=== PATIENT | male | born 1960 | race Caucasian/White ===

== ENCOUNTER 2019-07-14 17:42 | Emergency (ER) | payer MEDICAID ==
[~2019-07-14] VITALS: Ht 175.3 cm; Wt 77.1 kg
[2019-07-14 18:09] VITALS: BP 99/64
[2019-07-14] MEDS ORDERED: CLINDAMYCIN 600MG IV 50 ML IV ONE (18:15)
[2019-07-14] MEDS ORDERED: SODIUM CHLORIDE 0.9% 1,000 ML IV ONE ×2 (18:15)
[2019-07-14] MEDS ORDERED: cefTRIAXone 1GM/50ML D5W 50 ML IV ONE (18:15)
[2019-07-14] MEDS ORDERED: cefTRIAXone W LIDOCAINE 1 GM IM IM ONE (18:30)
[2019-07-14] MEDS ORDERED: CLINDAMYCIN 600 MG/4 ML VL IM ONE (18:30)
[2019-07-14] MEDS ORDERED: cefTRIAXone SOD 1,000 MG VL IM ONE (18:45)
[2019-07-14 18:53] LABS: Eosinophils # (auto) 0 uL; Eosinophils % (auto) 0.3 % (0.0-7.0); Monocytes # (auto) 0.7 uL; Nucleated Red Blood Cells % 0.1 %
[2019-07-14 18:56] LABS: Basophils # (auto) 0 uL; Basophils % (auto) 0.7 % (0.0-2.0); Hematocrit 42.7 % (41.0-53.0); Hemoglobin 15.1 g/dL (13.5-17.5); Mean Corpuscular Hemoglobin 37.6 pg (28.0-32.0); Mean Corpuscular Hgb Conc. 35.3 g/dL (32.0-36.0); Mean Corpuscular Volume 106.5 fL (80.0-100.0); Monocytes % (auto) 12.4 % (0.0-12.0); Neutrophils # (auto) 3.9 uL; Neutrophils % (auto) 69.6 % (37.0-80.0); Platelet Count (auto) 296 10^3/uL (140-450); Red Blood Cells 4.01 10^6/uL (4.5-5.90); Red Cell Distribution Width 13.1 % (11.8-14.3); White Blood Cell 5.7 10^3/uL (4.4-10.8)
[2019-07-14 19:06] LABS: INR 0.98 (0.9-1.15); Partial Thromboplastin Time 28.8 sec (23.64-32.05)
[2019-07-14 19:11] LABS: Albumin 2.4 g/dL (3.4-5.0); BUN/Creatinine Ratio 7.4; Calcium 8.1 mg/dL (8.5-10.1)
[2019-07-14 19:12] LABS: Lactic Acid w/Reflex 3.8 mmol/L (0.4-2.0)
[2019-07-14 19:13] LABS: Bilirubin, Total 0.8 mg/dL (0.2-1.0); Total Protein 6.6 g/dL (6.4-8.2)
[2019-07-14 19:22] LABS: Potassium 2.9 mmol/L (3.5-5.1)
== END 2019-07-14 18:50 | disposition left against medical advice (07) ==
LOC: ER 17:42
DX: L03.115 Cellulitis of right lower limb (principal); L03.116 Cellulitis of left lower limb
CPT/HCPCS: 36415; 80053; 83605; 85025; 85610; 85730; 87040; 96372; 99283; J0696

== ENCOUNTER 2019-07-16 11:02 | Inpatient (IN) | payer MEDICAID | END 2019-07-21 17:50 | disposition home or self-care (01) | LOC: ER 11:02 → TELE 11:03 → TELE-EAST 18:17 | DX: A41.9 Sepsis, unspecified organism (principal); E87.2 Acidosis; E44.0 Moderate protein-calorie malnutrition; E87.1 Hypo-osmolality and hyponatremia; R65.20 Severe sepsis without septic shock; L03.115 Cellulitis of right lower limb; L03.116 Cellulitis of left lower limb; E87.6 Hypokalemia ==

== ENCOUNTER 2020-07-07 14:12 | Inpatient (IN) | payer MEDICAID ==
[2020-07-07] VITALS (16 sets, daily range): BP systolic 70–177; BP diastolic 33–144
[~2020-07-07] VITALS: Ht 172.7 cm; Wt 84.9 kg
[2020-07-07] MEDS ORDERED: SODIUM CHLORIDE 0.9% 1,000 ML IVB ONE (14:43)
[2020-07-07 14:44] LABS: Basophils # (auto) 0 10 ^3/uL (0-0.2); Basophils % (auto) 0.1 % (0.0-2.0); Eosinophils # (auto) 0 10 ^3/uL (0-0.8); Hemoglobin 13.1 g/dL (13.5-17.5); Monocytes # (auto) 1.3 10 ^3/uL (0-1.3)
[2020-07-07] MEDS ORDERED: PANTOPRAZOLE 40 MG/10 ML VIAL INJ IV ONE (14:45)
[2020-07-07] MEDS ORDERED: PANTOPRAZOLE 40mg/50ML NS AE 50 ML IV ONE (14:45)
[2020-07-07 14:46] LABS: Hematocrit 41.2 % (41.0-53.0); Lymphocytes # (auto) 0.6 10 ^3/uL (0.4-5.4); Lymphocytes % (auto) 6.3 % (10.0-50.0); Mean Corpuscular Hemoglobin 37.4 pg (28.0-32.0); Mean Corpuscular Hgb Conc. 31.9 g/dL (32.0-36.0); Mean Corpuscular Volume 117.5 fL (80.0-100.0); Monocytes % (auto) 13.8 % (0.0-12.0); Neutrophils # (auto) 7.5 10 ^3/uL (1.6-8.6); Neutrophils % (auto) 79.8 % (37.0-80.0); Nucleated Red Blood Cells % 0.2 %; Platelet Count (auto) 168 10^3/uL (140-450); Red Cell Distribution Width 15.9 % (11.8-14.3); White Blood Cell 9.4 10^3/uL (4.4-10.8)
[2020-07-07 14:58] LABS: Albumin 2.1 g/dL (3.4-5.0); Calcium 7.3 mg/dL (8.5-10.1)
[2020-07-07 15:03] LABS: INR 2.46 (0.9-1.15); Partial Thromboplastin Time 47.3 sec (23.0-31.2)
[2020-07-07 15:05] LABS: Bilirubin, Total 10.2 mg/dL (0.2-1.0)
[2020-07-07] MEDS ORDERED: LORazepam 2MG/ML-1ML VIAL IV ONE (16:00)
[2020-07-07] MEDS ORDERED: DEXTROSE (50%) 50ML SYRG IV ONE (16:15)
[2020-07-07] MEDS ORDERED: D5W/SOD CHLO 0.9% 1,000 ML IV ONE (16:15)
[2020-07-07] MEDS ORDERED: D5W/SOD CHL 0.45% 1,000 ML IV SCH ×2 (17:00→18:30)
[2020-07-07] MEDS ORDERED: PIPERACILLIN-TAZOB 3.375GM 100 ML IV ONE (17:00)
[2020-07-07 17:51] LABS: Urine Bacteria NONE SEEN /hpf (None Seen); Urine Blood 3+ /uL (Negative); Urine Hyaline Cast MANY /lpf (0 - 2); Urine Mucus FEW (None Seen); Urine WBC 93 /hpf (0 - 3)
[2020-07-07 18:03] LABS: Alcohol, Urine < 3.0 mg/dL (0-10); Amphetamine Screen, Urine NEGATIVE (NEGATIVE); Barbiturate Scree,Urine NEGATIVE (NEGATIVE); Benzodiazephine Screen, Urine NEGATIVE (NEGATIVE); Cannabinoid Screen, Urine NEGATIVE (NEGATIVE); Cocaine Screen, Urine NEGATIVE (NEGATIVE); Opiate Scree,Urine NEGATIVE (NEGATIVE); Phencyclidine Screen, Urine NEGATIVE (NEGATIVE)
[2020-07-07] MEDS ORDERED: ONDANSETRON HCL 4 MG/2 ML VIAL IV PRN (18:30)
[2020-07-07] MEDS ORDERED: VANCOMYCIN 1GM/250ML 250 ML IV ONE (19:00)
[2020-07-07] MEDS ORDERED: VANCOMYCIN PER PHARMACY 0 MG IV SCH (19:00)
[2020-07-07] MEDS ORDERED: ACCU-CHEK COMFORT CURVE STRIP VI SCH (20:00)
[2020-07-07] MEDS ORDERED: SODIUM BICARBONATE 50ML VIAL 50 ML in D5W/SOD CHL 0.45% 1,000 ML IV SCH (20:15)
[2020-07-07] MEDS ORDERED: DEXTROSE (50%) 50ML SYRG IV PRN (20:15)
--- NOTE | 2020-07-07 20:20 | NUR ---
Pt being admitted to ICU MISSY LOPEZ admitted to ICU via gurney on environmental monitoring specialist, and portable 02. Patient transfered to bed, connected to ICU monitoring and oxygen, and weighed by bedscale. Patient oriented to MAURILIO LEONE, primary RN, unit, room, bed, and unit policies regarding patient care and visiting hours. Left wrist IV - clean/dry/intact. Bobo hung to gravity. All questions and concerns addressed, patient verbalized understanding.
[2020-07-07 21:05] LABS: Protein, Urine 187.9 mg/dL (0.0-11.9)
[2020-07-07] MEDS: NOREPINEPHRINE 8 MG/250ML KIT 250 ML IV SCH (21:30)
--- NOTE | 2020-07-07 21:30 | NUR ---
SPOKE WITH DR. SEBASTIAN HYDRO PNEUMATIC TESTER DOCTOR UPDATED ON PATIENT STATUS AND LOW SYSTOLIC BLOOD PRESSURE SUSTAINING IN THE 70'S. RECEIVED ORDERS FOR 1L NS FLUID BOLUS, STAT CBC, AND TO START LEVOPHED GTT PER PROTOCOL. DASHA. NOTED AND CARRIED OUT.
--- NOTE | 2020-07-07 21:30 | NUR ---
RIGHT FOREARM IV 22G INSERTED.
[2020-07-07] MEDS: LACTULOSE 20Gm/30ML SOLN PO SCH (21:51)
[2020-07-07] MEDS ORDERED: SODIUM BICARBONATE 8.4 % INJ 50ML VIAL IV ONE (21:57)
--- NOTE | 2020-07-07 22:00 | NUR ---
SPOKE WITH FAMILY (SISTER IN LAW) PASSWORD VERIFIED. UPDATED FAMILY ON PATIENT STATUS AND PLAN OF CARE. ALL QUESTIONS AND CONCERNS ANSWERED AND ADDRESSED AT THIS TIME.
[2020-07-07 22:23] LABS: Basophils # (auto) 0 10 ^3/uL (0-0.2); Hemoglobin 12.4 g/dL (13.5-17.5)
[2020-07-07 22:24] LABS: Basophils % (auto) 0.2 % (0.0-2.0); Eosinophils # (auto) 0.1 10 ^3/uL (0-0.8); Eosinophils % (auto) 0.8 % (0.0-7.0); Hematocrit 37.9 % (41.0-53.0); Lymphocytes # (auto) 0.7 10 ^3/uL (0.4-5.4); Lymphocytes % (auto) 4.8 % (10.0-50.0); Mean Corpuscular Hemoglobin 37.8 pg (28.0-32.0); Mean Corpuscular Hgb Conc. 32.8 g/dL (32.0-36.0); Mean Corpuscular Volume 115.1 fL (80.0-100.0); Monocytes % (auto) 7.2 % (0.0-12.0); Neutrophils # (auto) 11.7 10 ^3/uL (1.6-8.6); Platelet Count (auto) 140 10^3/uL (140-450); Red Blood Cells 3.29 10^6/uL (4.5-5.90); Red Cell Distribution Width 16.5 % (11.8-14.3); White Blood Cell 13.4 10^3/uL (4.4-10.8)
--- NOTE | 2020-07-07 22:35 | NUR ---
IN HOUSE COVID TEST WALKED TO LAB
[2020-07-07 22:42] LABS: Albumin 1.6 g/dL (3.4-5.0); BUN/Creatinine Ratio 5.3; Calcium 6.8 mg/dL (8.5-10.1); Potassium 4.2 mmol/L (3.5-5.1)
[2020-07-07 22:43] LABS: Lactic Acid w/Reflex 14.5 mmol/L (0.4-2.0)
[2020-07-07 22:44] LABS: Bilirubin, Total 9.1 mg/dL (0.2-1.0); Total Protein 4.3 g/dL (6.4-8.2)
--- NOTE | 2020-07-07 23:10 | NUR ---
SPOKE WITH DR. SEBASTIAN RELAYED LATEST LAB DRAW. NO NEW ORDERS AT THIS TIME. WILL CONTINUE TO MONITOR.
[2020-07-08] VITALS (89 sets, daily range): BP systolic 79–140; BP diastolic 26–122
[2020-07-08] MEDS: PIPERACILLIN-TAZOB 2.25GM 50 ML IV SCH ×4 (00:24→18:00)
[2020-07-08] MEDS ORDERED: SODIUM CHLORIDE 0.9% 1,000 ML IV ONE (00:30)
[2020-07-08 03:38] LABS: Basophils # (auto) 0 10 ^3/uL (0-0.2); Basophils % (auto) 0.2 % (0.0-2.0); Eosinophils # (auto) 0.3 10 ^3/uL (0-0.8); Hematocrit 41.9 % (41.0-53.0); Hemoglobin 13.6 g/dL (13.5-17.5); Lymphocytes # (auto) 0.8 10 ^3/uL (0.4-5.4); Lymphocytes % (auto) 5.1 % (10.0-50.0); Mean Corpuscular Hemoglobin 37.3 pg (28.0-32.0); Mean Corpuscular Hgb Conc. 32.4 g/dL (32.0-36.0); Mean Corpuscular Volume 115.2 fL (80.0-100.0); Monocytes % (auto) 6.8 % (0.0-12.0); Neutrophils # (auto) 12.6 10 ^3/uL (1.6-8.6); Neutrophils % (auto) 85.9 % (37.0-80.0); Nucleated Red Blood Cells % 0.1 %; Platelet Count (auto) 151 10^3/uL (140-450); Red Blood Cells 3.64 10^6/uL (4.5-5.90); Red Cell Distribution Width 16.4 % (11.8-14.3); White Blood Cell 14.7 10^3/uL (4.4-10.8)
[2020-07-08 03:57] LABS: Albumin 1.5 g/dL (3.4-5.0); Calcium 6.4 mg/dL (8.5-10.1); Potassium 3.9 mmol/L (3.5-5.1)
[2020-07-08 04:01] LABS: BUN/Creatinine Ratio 5.6; Total Protein 4.7 g/dL (6.4-8.2)
[2020-07-08] MEDS: LACTULOSE 20Gm/30ML SOLN PO SCH ×3 (06:00→22:00)
--- NOTE | 2020-07-08 06:27 | NUR ---
Respiratory note: PRN MED NEB TX NOT INDICATED AT THIS TIME. HR 106, RR 21, SPO2 98% ON 3 L NC, BS CLEAR AND SLIGHTLY DIMINISHED. NO SIGNS OR SYMPTOMS OF RESPIRATORY DISTRESS NOTED.
[2020-07-08] MEDS: PANTOPRAZOLE 40mg/50ML NS AE 50 ML IV SCH ×3 (06:30→16:30)
--- NOTE | 2020-07-08 06:30 | NUR ---
SPOKE WITH DR. SEBASTIAN UPDATED DOCTOR ON PATIENT STATUS - COFFEE GROUND EMESIS X3, SYSTOLIC BLOOD PRESSURE IN THE HIGH 80'S, AND LATEST BLOOD SUGAR - 199. RECEIVED ORDERS TO RESTART PATIENT ON PROTONIX GTT PER PROTOCOL AND TO CONTINUE TO MONITOR BLOOD SUGAR. DASHA. NOTED AND CARRIED OUT.
--- NOTE | 2020-07-08 08:00 | NUR ---
OPENING Report received from Logan RAMSAY RN. Care initiated and initial assessment complete.
[2020-07-08] MEDS ORDERED: PANTOPRAZOLE 40 MG/10 ML VIAL INJ IV ONE (08:15)
[2020-07-08] MEDS ORDERED: OCTREOTIDE ACETATE 100 MCG in SODIUM CHL 0.9% 50 ML IV ONE (08:45)
--- NOTE | 2020-07-08 09:00 | NUR ---
BEDSIDE Dr. Bryanna Gutiérrez bedside.
[2020-07-08] MEDS: SODIUM BICARBONATE 50ML VIAL 100 ML in D5W/SOD CHL 0.45% 1,000 ML IV SCH ×2 (09:15→20:15)
[2020-07-08] MEDS: PANTOPRAZOLE 40 MG/10 ML VIAL INJ IV SCH (10:00)
[2020-07-08] MEDS: PHENYLEPHRINE IV 250 ML IV SCH ×2 (10:08→18:28)
[2020-07-08 12:05] LABS: Acetaminophen < 2.0 ug/mL (10-30); Salicylate < 1.7 mg/dL (2.8-20.0)
--- NOTE | 2020-07-08 13:00 | NUR ---
WOUND CARE NOTE: ADDED PATIENT TO SKIN INTEGRITY MONITORING D/T PATIENT'S LOW JANNET SCORE OF 12. PATIENT ADMITTED TO [facility] WITH DIAGNOSIS OF ENCEPHALOPATHY. CURRENT JANNET IS NOW 14. PATIENT IS NOTED TO BE ON ROOM AIR CURRENTLY. HE IS WOUND FREE AT THIS TIME, WITH EXCEPTION OF HYERPIGMENTED BILATERAL LOWER EXTREMITIES. SKIN/WOUND CARE PLAN IMPLEMENTED. RECOMMEND: FREQUENT TURN SCHEDULE Q2 HOURS PRN, CONDITION PERMITS, WITH PRESSURE REDISTRIBUTION USING PILLOWS/WEDGES, BID/PRN APPLICATION OF MOISTURE BARRIER CREAM, OPTIFOAM GENTLE SACRAL DRESSING PREVENTATIVE, SKIN/WOUND CARE PLAN, CONTINUED MONITORING BY WOUND CARE TEAM.
[2020-07-08] MEDS ORDERED: VANCOMYCIN 500 MG in D5W 5% 100 ML IV ONE (14:00)
--- NOTE | 2020-07-08 17:07 | NUR ---
PICC line placement Patient educated on need for PICC line placement. All risks and benefits explained and all questions and concerns addressed prior to procedure. Noted past medical history and allergies with no contraindications. INR and Plt counts within acceptable range. fr PICC line inserted via RIGHT BASILIC vein using [facility] US and Tip Location System. Sterile technique with maximum barrier precautions utilized. Blood return obtained from each of 3 lumens and each flushed easily with NS using proper technique. PICC secured with Stat-lock; biodisc and occlusive dressing applied. Stat portable chest x-ray obtained for PICC tip placement. *Baseline Arm [id number]. PICC lot #[id number]. ITERNAL LENGTH 41CM EXTERNAL LENGTH 0CM
[2020-07-08] MEDS ORDERED: LIDOCAINE 1% (LOCAL ANESTH.) PF 5ml SDV ID ONE (17:15)
[2020-07-08] MEDS: OCTREOTIDE ACETATE 500 MCG in SODIUM CHL 0.9% 99 ML IV SCH ×2 (18:00→18:51)
--- NOTE | 2020-07-08 18:18 | NUR ---
OK to use PICC line Xray completed. OK to use PICC line by RADIOLOGIST.
--- NOTE | 2020-07-08 19:00 | NUR ---
BEDSIDE Dr. Yessica Alvarado bedside.
--- NOTE | 2020-07-08 19:10 | NUR ---
OPENING SHIFT RECEIVED REPORT FROM DAY SHIFT RN. ASSUMED CARE OF PATIENT. PATIENT IN BED WATCHING TV ALERT / ORIENTED TO SELF. ABLE TO FOLLOW SIMPLE COMMANDS, PRESENTS WITH PERIODS OF CONFUSION. REORIENTED PATIENT TO ENVIRONMENT. CURRENTLY ON 3L 02 NASAL CANULA, 02 SAT - 96%. RIGHT UPPER ARM PICC TLC, RIGHT FOREARM IV AND LEFT WRIST IV - CLEAN/DRY/INTACT. REYNA PATENT / DRAINING AND HUNG TO GRAVITY. VASOPRESSORS: LEVOPHED - 22MCG/MIN SANDOSTATIN - 10ML / HR D5W 1/2 NS WITH 1 AMP SODIUM BICARB - 100ML / HR REPOSITIONED FOR COMFORT. BED IN LOWEST POSITION, SIDE RAILS UP X2. CALL LIGHT WITHIN REACH. WILL CONTINUE TO MONITOR.
[2020-07-08 20:28] LABS: Eosinophils # (auto) 0 10 ^3/uL (0-0.8); Hemoglobin 12.2 g/dL (13.5-17.5); Nucleated Red Blood Cells % 0.1 %
[2020-07-08 20:30] LABS: Basophils # (auto) 0 10 ^3/uL (0-0.2); Basophils % (auto) 0.4 % (0.0-2.0); Eosinophils % (auto) 0.2 % (0.0-7.0); Hematocrit 36.2 % (41.0-53.0); Lymphocytes % (auto) 7.5 % (10.0-50.0); Mean Corpuscular Hemoglobin 37.3 pg (28.0-32.0); Mean Corpuscular Hgb Conc. 33.8 g/dL (32.0-36.0); Mean Corpuscular Volume 110.5 fL (80.0-100.0); Monocytes # (auto) 1.2 10 ^3/uL (0-1.3); Monocytes % (auto) 9.2 % (0.0-12.0); Neutrophils # (auto) 10.6 10 ^3/uL (1.6-8.6); Neutrophils % (auto) 82.7 % (37.0-80.0); Platelet Count (auto) 135 10^3/uL (140-450); Red Blood Cells 3.28 10^6/uL (4.5-5.90); Red Cell Distribution Width 15.9 % (11.8-14.3); White Blood Cell 12.9 10^3/uL (4.4-10.8)
[2020-07-08] MEDS ORDERED: LORazepam 2MG/ML-1ML VIAL IV PRN ×2 (20:45)
[2020-07-08] MEDS: NOREPINEPHRINE 8 MG/250ML KIT 250 ML IV SCH (20:49)
[2020-07-08] MEDS: GABAPENTIN 300 MG CAP PO SCH (22:00)
[2020-07-08] MEDS: SODIUM CHLOR 0.9% PF (SALINE LOCK) 10ML VIAL/SYR IV SCH (22:17)
--- NOTE | 2020-07-08 22:49 | NUR ---
Respiratory note: PATIENT SEEN AND ASSESSED FOR PRN MED NEB TREATMENT AT 2249. TREATMENT IS NOT INDICATED AT THIS TIME. PATIENT DENIES ANY RESPIRATORY DISTRESS. HR 98 RR 18 SP02 97% ON 3L NASAL CANNULA.
[2020-07-09] VITALS (89 sets, daily range): BP systolic 72–114; BP diastolic 46–72
[2020-07-09] MEDS: PIPERACILLIN-TAZOB 2.25GM 50 ML IV SCH ×4 (00:20→18:02)
[2020-07-09] MEDS: OCTREOTIDE ACETATE 500 MCG in SODIUM CHL 0.9% 99 ML IV SCH ×3 (01:41→22:00)
--- NOTE | 2020-07-09 02:05 | NUR ---
MORNING CARE PERFORMED MORNING CARE WITH CHG WIPES AND WASH CLOTHS TO THE FACE. FULL LINEN CHANGE AND GOWN CHANGED. ORAL AND REYNA CARE PERFORMED. REPOSITIONED FOR COMFORT. SKIN REASSESSED AT THIS TIME. BED IN LOWEST POSITION, SIDE RAILS UPX2. WILL CONTINUE TO MONITOR.
[2020-07-09] MEDS: PHENYLEPHRINE IV 250 ML IV SCH ×3 (02:48→19:28)
[2020-07-09] MEDS: NOREPINEPHRINE 8 MG/250ML KIT 250 ML IV SCH ×2 (03:35→21:29)
[2020-07-09 04:13] LABS: Basophils # (auto) 0 10 ^3/uL (0-0.2); Eosinophils # (auto) 0 10 ^3/uL (0-0.8); Eosinophils % (auto) 0.3 % (0.0-7.0); Hemoglobin 12.1 g/dL (13.5-17.5); Lymphocytes # (auto) 0.9 10 ^3/uL (0.4-5.4); Monocytes # (auto) 1.2 10 ^3/uL (0-1.3); Neutrophils # (auto) 9.2 10 ^3/uL (1.6-8.6); Neutrophils % (auto) 81.3 % (37.0-80.0); Red Cell Distribution Width 15.9 % (11.8-14.3); White Blood Cell 11.3 10^3/uL (4.4-10.8)
[2020-07-09 04:18] LABS: Basophils % (auto) 0.1 % (0.0-2.0); Hematocrit 35.3 % (41.0-53.0); Lymphocytes % (auto) 7.9 % (10.0-50.0); Mean Corpuscular Hemoglobin 37.9 pg (28.0-32.0); Mean Corpuscular Hgb Conc. 34.3 g/dL (32.0-36.0); Mean Corpuscular Volume 110.5 fL (80.0-100.0); Monocytes % (auto) 10.4 % (0.0-12.0); Nucleated Red Blood Cells % 0.2 %; Platelet Count (auto) 123 10^3/uL (140-450)
[2020-07-09 04:30] LABS: Potassium 3.1 mmol/L (3.5-5.1)
[2020-07-09 04:38] LABS: Albumin 1.6 g/dL (3.4-5.0); BUN/Creatinine Ratio 6.9; Bilirubin, Total 8.8 mg/dL (0.2-1.0)
[2020-07-09 04:50] LABS: INR 2.6 (0.9-1.15); Partial Thromboplastin Time 57.9 sec (23.0-31.2)
[2020-07-09 04:55] LABS: Calcium 5.8 mg/dL (8.5-10.1)
--- NOTE | 2020-07-09 05:40 | NUR ---
PAGED DR. LUCERO LEFT MESSAGE IN REGARDS TO POTASSIUM 3.1, CALCIUM 5.8, AND CORRECTED CALCIUM 7.7 AWAITING CALL BACK.
[2020-07-09] MEDS: LACTULOSE 20Gm/30ML SOLN PO SCH ×3 (05:47→22:00)
[2020-07-09] MEDS: GABAPENTIN 300 MG CAP PO SCH ×3 (05:47→22:00)
--- NOTE | 2020-07-09 07:20 | NUR ---
PRN MN TX NOT INDICATED AT THIS TIME. PT ON 3L/MIN VIA NC. 95% O2 SATS, HR 89 BPM, RR17 BPM, BP 116/61 NO SOB OR ANY OTHER RESPIRATORY DISTRESS NOTED. RESPIRATION IS EVEN AND NONLABORED. SKIN IS WARM AND DRY TO THE TOUCH. WILL CONTINUE TO MONITOR PT.
--- NOTE | 2020-07-09 07:31 | NUR ---
END OF SHIFT REPORT GIVEN TO DAY SHIFT RN. CARE ENDORSED.
--- NOTE | 2020-07-09 07:45 | NUR ---
OPENING Report received from Logan RAMSAY RN. Care initiated and initial assessment complete.
--- NOTE | 2020-07-09 07:59 | NUR ---
BEDSIDE Dr. Almazan bedside assessing patient. No new orders received.
--- NOTE | 2020-07-09 08:05 | NUR ---
BEDSIDE Dr. Bryanna Gutiérrez bedside. Updated on patient status.
[2020-07-09] MEDS: SODIUM CHLOR 0.9% PF (SALINE LOCK) 10ML VIAL/SYR IV SCH ×2 (10:17→22:00)
[2020-07-09] MEDS: PANTOPRAZOLE 40 MG/10 ML VIAL INJ IV SCH (10:18)
[2020-07-09] MEDS ORDERED: PHYTONADIONE (VIT K)10 MG/ML 1ML VIAL IV ONE (11:00)
[2020-07-09] MEDS ORDERED: VANCOMYCIN 500 MG in D5W 5% 100 ML IV ONE (11:00)
[2020-07-09] MEDS ORDERED: phytonadione 10 MG in SODIUM CHL 0.9% 50 ML IV ONE (11:30)
--- NOTE | 2020-07-09 12:26 | NUR ---
BEDSIDE Dr. Clifford bedside. New orders placed by .
[2020-07-09] MEDS: ALBUMIN 25% 100 ML IV SCH ×2 (12:30→21:30)
[2020-07-09] MEDS: POTASSIUM CHL 20MEQ/100ML 100 ML IV SCH ×2 (12:30→14:34)
[2020-07-09] MEDS: CALCIUM GLUC 4.65meq/50ml D5AE 50 ML IV SCH ×2 (13:00→14:00)
[2020-07-09 14:21] LABS: INR 2.58 (0.9-1.15)
[2020-07-09 15:41] LABS: Hepatitis B Core IgM Negative
[2020-07-09 15:41] LABS: Basophils # (auto) 0.1 10 ^3/uL (0-0.2); Eosinophils # (auto) 0.1 10 ^3/uL (0-0.8); Lymphocytes # (auto) 0.8 10 ^3/uL (0.4-5.4); Mean Corpuscular Hgb Conc. 34.1 g/dL (32.0-36.0); Monocytes # (auto) 0.8 10 ^3/uL (0-1.3); Red Cell Distribution Width 15.7 % (11.8-14.3); White Blood Cell 7.6 10^3/uL (4.4-10.8)
[2020-07-09 15:42] LABS: Hepatitis B Surface Antigen Negative (Negative); Hepatitis C Antibody Negative (Negative)
[2020-07-09 15:43] LABS: Basophils % (auto) 0.9 % (0.0-2.0); Eosinophils % (auto) 1.8 % (0.0-7.0); Hematocrit 32.2 % (41.0-53.0); Lymphocytes % (auto) 10.5 % (10.0-50.0); Mean Corpuscular Hemoglobin 37.8 pg (28.0-32.0); Mean Corpuscular Volume 110.9 fL (80.0-100.0); Monocytes % (auto) 11.2 % (0.0-12.0); Neutrophils # (auto) 5.7 10 ^3/uL (1.6-8.6); Neutrophils % (auto) 75.6 % (37.0-80.0); Platelet Count (auto) 77 10^3/uL (140-450)
--- NOTE | 2020-07-09 17:30 | NUR ---
BEDSIDE Dr. Alvarado bedside.
[2020-07-09] MEDS: MIDODRINE HCL 10 MG TAB PO SCH (18:02)
[2020-07-09] MEDS: SODIUM BICARBONATE 50ML VIAL 100 ML in D5W/SOD CHL 0.45% 1,000 ML IV SCH ×4 (18:02→23:12)
--- NOTE | 2020-07-09 18:44 | NUR ---
RT NOTE: PT SLEEPING WITH NO DISTRESS NOTED AT THIS TIME. PT ON 3LPM NC SPO2 94%, HR 85, RR 22. NO TX INDICATED AT THIS TIME. WILL CONTINUE TO MONITOR PT.
[2020-07-09] MEDS ORDERED: SODIUM BICARBONATE 8.4 % INJ 50ML VIAL IV ONE (23:01)
[2020-07-10] VITALS (98 sets, daily range): BP systolic 75–125; BP diastolic 43–73
[2020-07-10] MEDS: PHENYLEPHRINE IV 250 ML IV SCH ×3 (03:48→20:28)
[2020-07-10 04:59] LABS: Basophils # (auto) 0 10 ^3/uL (0-0.2); Basophils % (auto) 0.5 % (0.0-2.0); Eosinophils # (auto) 0.2 10 ^3/uL (0-0.8); Eosinophils % (auto) 2.9 % (0.0-7.0); Hematocrit 33.1 % (41.0-53.0); Hemoglobin 11.2 g/dL (13.5-17.5); Lymphocytes # (auto) 0.8 10 ^3/uL (0.4-5.4); Lymphocytes % (auto) 9.7 % (10.0-50.0); Mean Corpuscular Hgb Conc. 33.8 g/dL (32.0-36.0); Mean Corpuscular Volume 112.7 fL (80.0-100.0); Monocytes % (auto) 12.1 % (0.0-12.0); Neutrophils # (auto) 5.9 10 ^3/uL (1.6-8.6); Neutrophils % (auto) 74.8 % (37.0-80.0); Platelet Count (auto) 57 10^3/uL (140-450); Red Blood Cells 2.93 10^6/uL (4.5-5.90); Red Cell Distribution Width 16.1 % (11.8-14.3); White Blood Cell 7.9 10^3/uL (4.4-10.8)
[2020-07-10 05:19] LABS: Albumin 2.2 g/dL (3.4-5.0); BUN/Creatinine Ratio 8.9; Potassium 3.4 mmol/L (3.5-5.1)
[2020-07-10 05:22] LABS: Bilirubin, Total 10.5 mg/dL (0.2-1.0); Total Protein 4.6 g/dL (6.4-8.2)
[2020-07-10 05:47] LABS: INR 2.4 (0.9-1.15)
[2020-07-10] MEDS: LACTULOSE 20Gm/30ML SOLN PO SCH ×3 (06:00→22:00)
[2020-07-10] MEDS: GABAPENTIN 300 MG CAP PO SCH ×3 (06:00→22:00)
[2020-07-10] MEDS: ALBUTEROL SULF 2.5 MG/0.5ML(0.5%) NEB SOLN NEB PRN ×2 (06:19→18:28)
[2020-07-10 06:41] LABS: Hepatitis A Ab IgM Equivocal
[2020-07-10] MEDS: OCTREOTIDE ACETATE 500 MCG in SODIUM CHL 0.9% 99 ML IV SCH ×2 (08:26→18:10)
[2020-07-10] MEDS: MIDODRINE HCL 10 MG TAB PO SCH ×3 (08:39→17:44)
[2020-07-10] MEDS ORDERED: ALBUMIN 25% 100 ML IV SCH (08:45)
[2020-07-10] MEDS: ALBUMIN 25% 100 ML IV SCH (08:47)
[2020-07-10] MEDS: PIPERACILLIN-TAZOB 2.25GM 50 ML IV SCH ×4 (08:47→17:44)
--- NOTE | 2020-07-10 08:56 | NUR ---
BP WAS IN THE MID 80'S OVER 50'S . STARTED PT'S ALBUMIN AND MEDICATED WITH MIDODRINE PO, THAT WAS SCHEDULED FOR 0600. PT HAD NOT RECEIVED BECAUSE HE WAS RECEIVING FFP AND HE HAS BEEN NPO FOR PARACENTESIS. I GAVE HIM THE PILL WITH A LITTLE SIP OF WATER. PT HAS LEVOPHED AVAILABLE JUST IN CASE IF HYPOTENSION PERSIST.
[2020-07-10 09:03] LABS: INR 1.77 (0.9-1.15); Partial Thromboplastin Time 46.7 sec (23.0-31.2)
--- NOTE | 2020-07-10 10:40 | NUR ---
PARACENTESIS COMPLETED, PT WAS HYPOTENSIVE AFTER PROCEDURE WAS COMPLETED, PT WAS STARTED ON LEVOPHED FOR BP SUPPORT , CURRENTLY AT 4 MCG/MIN PT HAD A TOTAL OF 3750 OF CLEAR YELLOW PARACENTESIS FLUID REMOVED FROM HIS ABDOMEN. NOW HIS ABDOMEN IS LESS DISTENDED AND PT IS ABLE TO BREATH MUCH EASIER.
[2020-07-10] MEDS: POTASSIUM CHL 20MEQ/100ML 100 ML IV SCH ×2 (10:47→13:27)
[2020-07-10] MEDS: PANTOPRAZOLE 40 MG/10 ML VIAL INJ IV SCH (10:47)
[2020-07-10] MEDS: SODIUM CHLOR 0.9% PF (SALINE LOCK) 10ML VIAL/SYR IV SCH ×2 (10:48→22:00)
--- NOTE | 2020-07-10 11:58 | NUR ---
Nutrition Assessment Note please see attached link for complete assessment Est Energy needs BW 83 [id number] kcals (23-25 kcal/kgBW), Est Protein needs: 50-66 gms/day (0.6-0.8gm/kgBW r/t elev ammonia). Will continue to monitor and reassess prn. Addendum: 07/10/20 at [address] Amended: Links added.
[2020-07-10] MEDS ORDERED: VANCOMYCIN 500 MG in D5W 5% 100 ML IV ONE (14:00)
[2020-07-10] MEDS ORDERED: POTASSIUM EFFERVESENT TAB 25 MEQ PO ONE (17:15)
--- NOTE | 2020-07-10 18:58 | NUR ---
K DRAWN THROUGH PICC LINE AND SENT TO LAB.
--- NOTE | 2020-07-10 20:20 | NUR ---
MD Bird Alvarado at bedside. New order received
[2020-07-10] MEDS ORDERED: POTASSIUM CHL 20MEQ/100ML 100 ML IV ONE (21:00)
--- NOTE | 2020-07-10 22:00 | NUR ---
PO MEDS HELD PT DOES NOT SWALLOW WELL. AWARE
[2020-07-11] VITALS (90 sets, daily range): BP systolic 92–150; BP diastolic 52–88
[2020-07-11] MEDS: PHENYLEPHRINE IV 250 ML IV SCH ×3 (04:48→21:28)
[2020-07-11] MEDS: MIDODRINE HCL 10 MG TAB PO SCH ×3 (05:36→17:58)
[2020-07-11] MEDS: OCTREOTIDE ACETATE 500 MCG in SODIUM CHL 0.9% 99 ML IV SCH ×2 (05:36→16:33)
[2020-07-11] MEDS: GABAPENTIN 300 MG CAP PO SCH ×3 (05:36→22:00)
[2020-07-11] MEDS: PIPERACILLIN-TAZOB 2.25GM 50 ML IV SCH ×4 (05:36→17:58)
[2020-07-11] MEDS: LACTULOSE 20Gm/30ML SOLN PO SCH ×3 (05:36→22:00)
--- NOTE | 2020-07-11 06:00 | NUR ---
Pt able to swallow thin liquids and small pills just fine.
[2020-07-11 06:56] LABS: Basophils # (auto) 0 10 ^3/uL (0-0.2); Eosinophils # (auto) 0.1 10 ^3/uL (0-0.8); Eosinophils % (auto) 0.8 % (0.0-7.0); Hemoglobin 12.2 g/dL (13.5-17.5)
[2020-07-11 06:58] LABS: Basophils % (auto) 0.2 % (0.0-2.0); Lymphocytes # (auto) 0.5 10 ^3/uL (0.4-5.4); Lymphocytes % (auto) 5.3 % (10.0-50.0); Mean Corpuscular Hemoglobin 38.5 pg (28.0-32.0); Mean Corpuscular Hgb Conc. 34.9 g/dL (32.0-36.0); Mean Corpuscular Volume 110.2 fL (80.0-100.0); Monocytes # (auto) 1.4 10 ^3/uL (0-1.3); Monocytes % (auto) 13.5 % (0.0-12.0); Neutrophils # (auto) 8.3 10 ^3/uL (1.6-8.6); Neutrophils % (auto) 80.2 % (37.0-80.0); Nucleated Red Blood Cells % 0.1 %; Platelet Count (auto) 86 10^3/uL (140-450); Red Blood Cells 3.18 10^6/uL (4.5-5.90); Red Cell Distribution Width 15.4 % (11.8-14.3); White Blood Cell 10.3 10^3/uL (4.4-10.8)
[2020-07-11 07:04] LABS: BUN/Creatinine Ratio 11.6; Calcium 7.5 mg/dL (8.5-10.1); Potassium 3.8 mmol/L (3.5-5.1)
[2020-07-11] MEDS: NOREPINEPHRINE 8 MG/250ML KIT 250 ML IV SCH (07:36)
--- NOTE | 2020-07-11 08:00 | NUR ---
AM ASSESSMENT COMPLETED. REMAINS ON LEVOPHED AT 5 MICG/MIN FOR BP SUPPORT. DENIES ANY S.O.B, ABDOMEN IS LARGE ROUND WITH ASCETIS , DENIES N/V/D, SKIN JAUNDICE FROM LIVER CIRRHOSIS. PT IS ALERT AND ORIENTED TO SELF AND SITUATION AND PLACE DISORIENTED TO TIME. EDUCATED ON POC. PT VERBALIZED UNDERSTANDING. NO ACTIVE BLEED AT THIS TIME. PT CONTINUES TO BE NPO UNTIL SWALLOW EVALUATION IS DONE. PT ALSO HAS CELLULITIS ON BOTH LEGS AND EXCORIATION ON HIS COCCYX, SKIN IS MAINTAINED CLEAN AD DRY. HE IS ASSISTED WITH REPOSITIONING Q 2 HOURS AND PRN. ALL MONITOR ALARMS VERIFIED. HE REMAINS ON SANDOSTATIN GTT FOR GI BLEED PREVENTION. H+H STABLE.
--- NOTE | 2020-07-11 08:49 | NUR ---
ASSESSED PT FOR PRN BREATHING TX, PT ON 3L NC WITH SPO2 95% RR 18, HR 91, BP 101/65 WITH CLEAR BS NO DISTRESS NOTED. NO INDICATION FOR PRN BREATHING AT THIS TIME. WILL CONTINUE TO MONITOR PT.
[2020-07-11] MEDS: PANTOPRAZOLE 40 MG/10 ML VIAL INJ IV SCH (10:29)
[2020-07-11] MEDS: SODIUM CHLOR 0.9% PF (SALINE LOCK) 10ML VIAL/SYR IV SCH ×2 (10:29→22:00)
[2020-07-11] MEDS: VANCOMYCIN 500 MG in D5W 5% 100 ML IV SCH (11:04)
--- NOTE | 2020-07-11 15:27 | NUR ---
PICC LINE RN AT BEDSIDE TO INSERT LINE. Addendum: 07/11/20 at 1529 by MELVIN KNUTSON RN WRONG CHART
--- NOTE | 2020-07-11 15:28 | NUR ---
assessment Patient is a 59 year old male who is in ICU. Per patients brother Agus prior to admission patient lived home on his property and was independent. Patient has a cane for home use. Patients PCP is Dr Blair. Per Agus he called 911 due to patient having abdominal pain, diarrhea, and vomiting for 4 days. I informed Agus patients post discharge needs to be determined prior to discharge. I informed Agus I will continue to monitor and follow up as appropriate for any post discharge needs. Agus verbalized understanding. Addendum: 07/11/20 at 1532 by Zoey GUILLERMO Amended: Links added.
[2020-07-11] MEDS ORDERED: PHYTONADIONE (VIT K)10 MG/ML 1ML VIAL SUBCUT ONE (18:15)
--- NOTE | 2020-07-11 19:00 | NUR ---
PT HAD A LARGE BM. COMPLETE BED BATH GIVEN. ALL LINEN CHANGED. PT'S SCROTUM ABOUT THE SIZE OF A CANTALOUPE. PROTECTIVE SKIN BARRIER APPLIED AND ELEVATED ON A PILLOW CASED . PT TOLERATED BATH WITH MINOR DISCOMFORT. FC CARE RENDERED.
[2020-07-11 19:29] LABS: INR 1.78 (0.9-1.15)
--- NOTE | 2020-07-11 20:30 | NUR ---
NUTRITION Pt stating he is hungry. Able to swallow fine. Cunningham provided and pt ate without any issues. Stated he felt better.
--- NOTE | 2020-07-11 21:21 | NUR ---
Received phone call from family. Password verified and updated on pt's current status. All questions and concerns addressed at this time.
--- NOTE | 2020-07-11 22:00 | NUR ---
Report given to Torito PHILIP Pt transferred on bed via ACLS guidelines to [facility] floor without incidence. Addendum: 07/12/20 at 2347 by REYMUNDO GARCIA RN WRONG DATE
--- NOTE | 2020-07-11 22:59 | NUR ---
Respiratory note: PT RECEIVED ON NC3L. PT IS SLEEPING AT THIS TIME. NO RESP DISTRESS NOTED. SPO2 95%, HR 82, RR 18. PRN TX NOT INDICATED AT THIS TIME. WILL CONTINUE TO MONITOR PT T/O SHIFT.
[2020-07-12] VITALS (71 sets, daily range): BP systolic 89–122; BP diastolic 48–71
[2020-07-12] MEDS: OCTREOTIDE ACETATE 500 MCG in SODIUM CHL 0.9% 99 ML IV SCH ×3 (02:27→22:06)
--- NOTE | 2020-07-12 04:30 | NUR ---
Levophed gtt titrated off. b/p 102/65
--- NOTE | 2020-07-12 06:20 | NUR ---
Elimination Pt had moderate amount sized loose bm. Cleansed pt and provided skin care. Pt tolerated well. Bobo not draining as much output. Bladder scanner done and showed greater than 400 mls of urine. Bobo catheter switched out and received only 50 cc of dark urine out. Pt states he feels better. Will continue to monitor closely and inform MD.
[2020-07-12] MEDS: LACTULOSE 20Gm/30ML SOLN PO SCH ×3 (06:26→22:03)
[2020-07-12] MEDS: MIDODRINE HCL 10 MG TAB PO SCH ×3 (06:27→18:30)
[2020-07-12] MEDS: PIPERACILLIN-TAZOB 2.25GM 50 ML IV SCH ×5 (06:27→23:28)
[2020-07-12] MEDS: GABAPENTIN 300 MG CAP PO SCH ×3 (06:27→22:00)
--- NOTE | 2020-07-12 06:30 | NUR ---
RT NOTE: WENT TO PTS ROOM TO ASSESS FOR PRN BREATHING TX, HR 101, RR 16, SPO2 96% ON 3L NC. NO INDICATION FOR TX AT THIS TIME. WILL CONTINUE TO MONITOR PT.
--- NOTE | 2020-07-12 07:00 | NUR ---
REPORT RECEIVED FROM FINANCIAL SYSTEMS ANALYST NURSE. PATIENT RESTING IN BED AT THIS TIME. RESPIRATIONS EVEN AND UNLABORED. NO SIGNS OF ACUTE DISTRESS NOTED. CALL LIGHT IN REACH, BED IN LOW POSITION. WILL CONTINUE TO MONITOR.
--- NOTE | 2020-07-12 07:41 | NUR ---
Report given to day shift RN to assume care
--- NOTE | 2020-07-12 08:20 | NUR ---
DR LIANG AT BEDSIDE TO ASSESS PATIENT AND DISCUSS PLAN OF CARE.
--- NOTE | 2020-07-12 10:00 | NUR ---
DR OROPEZA AT BEDSIDE TO ASSESS PATIENT. ALL ORDERS NOTED IN CHART.
[2020-07-12] MEDS: VANCOMYCIN 500 MG in D5W 5% 100 ML IV SCH (10:24)
[2020-07-12] MEDS: PANTOPRAZOLE 40 MG/10 ML VIAL INJ IV SCH (10:24)
[2020-07-12] MEDS: ALBUMIN 25% 100 ML IV SCH ×2 (10:25→18:30)
[2020-07-12] MEDS: SODIUM CHLOR 0.9% PF (SALINE LOCK) 10ML VIAL/SYR IV SCH ×2 (10:36→22:03)
[2020-07-12] MEDS: PHENYLEPHRINE IV 250 ML IV SCH (10:38)
--- NOTE | 2020-07-12 11:15 | NUR ---
Nutrition Followup Note Wt: 83.6 kg pt was with md at bedside. per records pt with improving ALOC. pt is now advanced to Hepatic diet 50 gm protein 2 gm na with no PO recorded yet. Est Energy needs BW 83 [id number] kcals (23-25 kcal/kgBW), Est Protein needs: 50-66 gms/day (0.6-0.8gm/kgBW r/t elev ammonia). Will continue to monitor and reassess prn. Labs: CA 7.5 L, BUN 28 H CREAT 2.41 H ALB 2.2 L BM: Pt has no BM reported per RN doc Skin: BS 14 mod risk, full details in director of career services note PES: Altered nutrition related lab values r.t current chronic medial condition aeb elev ammonia severe hypoalb hypocalcemia hyperbil Comments Will continue to monitor PO intake, skin status, pertinent labs and weight trends. Will f/u in 3-5 days. Rec: 1) consider prostat 1 packet bid as ammonia improve. 2) continue assistance with meals 3) continue current plan of care
--- NOTE | 2020-07-12 13:00 | NUR ---
DR Yessica SRIVASTAVA AT BEDSIDE TO ASSESS PATIENT AND DISCUSS PLAN OF CARE. MD DISCUSSED EXTENSIVELY WITH PATIENT HIS CONDITION AND RECOMMENDATION FOR HOSPICE. PATIENT AGREED TO GO HOME WITH FAMILY ON HOSPICE TOMORROW. ALL QUESTIONS AND CONCERNS ADDRESSED. MD SPOKE WITH FAMILY ABOUT PATIENT STATUS WELL.
--- NOTE | 2020-07-12 13:20 | NUR ---
DR ZHANG AT BEDSIDE TO ASSESS PATIENT AND DISCUSS PLAN OF CARE.
[2020-07-12 14:00] LABS: White Blood Cell 11.1 10^3/uL (4.4-10.8)
[2020-07-12 14:03] LABS: Hematocrit 32.7 % (41.0-53.0); Hemoglobin 11.4 g/dL (13.5-17.5); Mean Corpuscular Hemoglobin 38.4 pg (28.0-32.0); Mean Corpuscular Hgb Conc. 34.8 g/dL (32.0-36.0); Mean Corpuscular Volume 110.5 fL (80.0-100.0); Platelet Count (auto) 73 10^3/uL (140-450); Red Blood Cells 2.96 10^6/uL (4.5-5.90); Red Cell Distribution Width 15.4 % (11.8-14.3)
[2020-07-12 14:08] LABS: Basophils % (manual) 0 (0.0-2.0); Blast Cells 0; Eosinophils % (manual) 0 (0-7); Metamyelocytes % 0; Myelocytes % 0; Promyelocytes % 0; Reactive Lymphocytes 0
[2020-07-12 14:38] LABS: Band Neutrophils % (manual) 1; Lymphocytes % (manual) 5 (10.0-50.0); Monocytes % (manual) 14 (0-12)
[2020-07-12 14:45] LABS: Albumin 2.3 g/dL (3.4-5.0); Calcium 7.3 mg/dL (8.5-10.1); Potassium 3.5 mmol/L (3.5-5.1)
[2020-07-12 14:48] LABS: BUN/Creatinine Ratio 16.9; Bilirubin, Total 19.3 mg/dL (0.2-1.0); Total Protein 4.5 g/dL (6.4-8.2)
--- NOTE | 2020-07-12 15:44 | NUR ---
Two attempts made for PT eval, pt declined twice. Will attempt again tomorrow.
--- NOTE | 2020-07-12 15:51 | NUR ---
PAGED DR Yessica SRIVASTAVA TO INFORM OF PATIENT AND FAMILY REQUEST FOR HOSPICE. AWAITING CALL BACK.
--- NOTE | 2020-07-12 16:18 | NUR ---
SPOKE TO DR Yessica SRIVASTAVA ABOUT HOSPICE EVALUATION. PER MD CANCEL COVID TEST WHICH IS NOT NEEDED FOR HOSPICE. PER MD PLACE REVERSER CONSULT FOR HOSPICE AND PLACE DISCHARGE FOR TOMORROW. ALL ORDERS NOTED IN CHART.
--- NOTE | 2020-07-12 17:07 | NUR ---
re-assessment Per consult discharge planning and hospice consult. Patient has agreed to hospice. Patient has been offered a list of hospice providers. Patient wants the hospice Dr Alvarado recommended [facility]. MD order has been sent to [facility]. Per Morena at [facility] Flako will follow up with patient and family. Addendum: 07/12/20 at 1709 by Zoey GUILLERMO Amended: Links added.
--- NOTE | 2020-07-12 17:46 | NUR ---
SPOKE TO [facility] AND UPDATED ON PATIENT STATUS. WILL CALL FAMILY AND DISCUSS PLAN OF CARE. PER HOSPICE [facility] CONTINUE PICC LINE AND REYNA ON DISCHARGE. WILL DISCONTINUE IF PATIENT DOES NOT NEED IT.
--- NOTE | 2020-07-12 18:45 | NUR ---
PT ASSESSED FOR PRN MED NEB TX. SPO2 98% ON 3L NC, HR 96, RR 22. PT DENIES ANY RESPIRATORY DISTRESS OR PREVIOUS USE. NO TX INDICATED AT THIS TIME. WILL CONTINUE TO MONITOR.
--- NOTE | 2020-07-12 19:03 | NUR ---
SPOKE TO REPAIRER SASH AND DOOR MD ABOUT PATIENTS BECOMING LETHARGIC WHEN GIVEN NEURONTIN. PER MD HOLD UNTIL TOMORROW AND DISCUSS WITH DR Yessica SRIVASTAVA. WILL PASS ON TO CLAY STRUCTURE BUILDER AND SERVICER NURSE.
--- NOTE | 2020-07-12 22:00 | NUR ---
Report given to Torito HERNANDEZ. Pt transferred on bed via ACLS guidelines to Tele floor without incidence.
--- NOTE | 2020-07-12 22:12 | NUR ---
icu downgrade arrived awake and alert to self as well as where he was and why. this nurse oriented the patient to the date. pt on 3L nc no distress observed or reported. pt oriented to this nurse, room, use of bed controls and call lights. pt has lau in place, secure, below the waist and draining dark sybil. pt denies any pain at this time. bed locked, low and 2x rails up. call light in reach, this nurse gave report to Treasure HERNANDEZ. pt encouraged to call as needed.
[2020-07-13] MEDS: ALBUMIN 25% 100 ML IV SCH ×2 (01:17→09:33)
--- NOTE | 2020-07-13 05:00 | NUR ---
Med Held Per RN note, gabapentin is to be held for 24 hours per MD until MD reviews (see note on 07/12/20 at 1903). Med held at this time (see emar). Will continue to monitor.
[2020-07-13 05:04] VITALS: BP 104/64
[2020-07-13] MEDS: LACTULOSE 20Gm/30ML SOLN PO SCH ×2 (05:05→14:00)
[2020-07-13] MEDS: MIDODRINE HCL 10 MG TAB PO SCH ×2 (05:05→12:26)
[2020-07-13] MEDS: PIPERACILLIN-TAZOB 2.25GM 50 ML IV SCH ×2 (05:05→12:26)
[2020-07-13] MEDS: GABAPENTIN 300 MG CAP PO SCH ×2 (05:07→14:00)
[2020-07-13 05:44] LABS: Albumin 3.2 g/dL (3.4-5.0); BUN/Creatinine Ratio 17.8; Calcium 8.4 mg/dL (8.5-10.1); Potassium 3.9 mmol/L (3.5-5.1)
[2020-07-13 05:56] LABS: Bilirubin, Total 23.5 mg/dL (0.2-1.0); Total Protein 4.9 g/dL (6.4-8.2)
[2020-07-13 08:38] VITALS: BP 102/62
[2020-07-13] MEDS: OCTREOTIDE ACETATE 500 MCG in SODIUM CHL 0.9% 99 ML IV SCH (09:06)
[2020-07-13] MEDS: PANTOPRAZOLE 40 MG/10 ML VIAL INJ IV SCH (09:30)
[2020-07-13] MEDS: SODIUM CHLOR 0.9% PF (SALINE LOCK) 10ML VIAL/SYR IV SCH (09:33)
--- NOTE | 2020-07-13 10:00 | NUR ---
Vanco trough drawn and pending at this time. Will hold vancomycin until result is posted.
--- NOTE | 2020-07-13 11:04 | NUR ---
Respiratory note: PT ASSESSED FOR PRN MED NEB TX, NO TX DESIRED NOR INDICATED AT THIS TIME. PT RESTING WITH NO SIGNS OF DISTRESS. HR 99 RR 18 SPO2 96% ON 3L N/C. PT AND RN AWARE TO HAVE RT PAGED IF NEEDED.
[2020-07-13 12:54] VITALS: BP 104/69
--- NOTE | 2020-07-13 14:10 | NUR ---
patient discharge home on hospice with [facility], transported by [employer] [facility]. patient's sister in-law made aware and she also talked to patient. Picc line, IV discontinued, and lau removed per Md's order, tele box returned to icu.
[2020-07-13] MEDS: VANCOMYCIN 500 MG in D5W 5% 100 ML IV SCH (14:16)
== END 2020-07-13 14:10 | disposition hospice, home (50) | DRG 279 ==
LOC: ER 14:12 → EDUNIT# 14:12 → EDBD 14:12 → TELE 14:13 → ICU WEST 20:44 → TELE-WESTW 07-12 21:58
PROVIDERS: ADMIT Internal Medicine; ATTEND Internal Medicine
PROC: 02HV33Z Insertion of Infusion Device into Superior Vena Cava, Percutaneous Approach (ICD-10-PCS; principal; 2020-07-08)
PROC: 30233K1 Transfusion of Nonautologous Frozen Plasma into Peripheral Vein, Percutaneous Approach (ICD-10-PCS; 2020-07-10)
PROC: 0W9G3ZZ Drainage of Peritoneal Cavity, Percutaneous Approach (ICD-10-PCS; 2020-07-10)
DX: K72.90 Hepatic failure, unspecified without coma (principal); N17.0 Acute kidney failure with tubular necrosis; J96.00 Acute respiratory failure, unspecified whether with hypoxia or hypercapnia; D68.9 Coagulation defect, unspecified; Z20.828 Contact with and (suspected) exposure to other viral communicable diseases; K70.31 Alcoholic cirrhosis of liver with ascites; E87.2 Acidosis; Y90.9 Presence of alcohol in blood, level not specified; N39.0 Urinary tract infection, site not specified; D64.9 Anemia, unspecified; D69.59 Other secondary thrombocytopenia; D72.829 Elevated white blood cell count, unspecified; E11.649 Type 2 diabetes mellitus with hypoglycemia without coma; E78.00 Pure hypercholesterolemia, unspecified; K44.9 Diaphragmatic hernia without obstruction or gangrene; K76.0 Fatty (change of) liver, not elsewhere classified; J98.11 Atelectasis; K92.2 Gastrointestinal hemorrhage, unspecified; Z79.899 Other long term (current) drug therapy; Z59.0 Homelessness; Z83.3 Family history of diabetes mellitus; Z82.0 Family history of epilepsy and other diseases of the nervous system
CPT/HCPCS: 36415; 36569; 70450; 71045; 74176; 76705; 76942; 80048; 80053; 80202; 80307; 80320; 80329; 81001; 82010; 82140; 82150; 82270; 82550; 82570; 82962; 83605; 83690; 83735; 83986; 84100; 84132; 84155; 84156; 84300; 84484; 85007; 85025; 85027; 85610; 85730; 86705; 86709; 86803; 86850; 86900; 86901; 87040; 87081; 87086; 87088; 87186; 87205; 87340; 87426; 89051; 93005; 94640; 99291; C9113; G0378; J0610; J2405; J2543; J3430; J3480; J7060; P9047